=== PATIENT | male | born 1970 | race Caucasian/White ===

== ENCOUNTER 2021-12-25 06:15 | Emergency (ER) | payer MEDICAID ==
[~2021-12-25] VITALS: Ht 180.3 cm; Wt 83.9 kg
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
--- NOTE | 2021-12-25 06:32 | NUR ---
Seen and examined by Dr. Nguyen for MSE.
[2021-12-25] MEDS ORDERED: TDAP DIPH,PERTUSS,TET VAC/PF 0.5 ML DISP.SYRIN IM ONE ×2 (06:45→07:24)
--- NOTE | 2021-12-25 07:05 | NUR ---
Xray done at bedside c/o [facility].
--- NOTE | 2021-12-25 07:13 | NUR ---
Endorsed to THOMAS Dsouza RN.
[2021-12-25 08:19] LABS: HEMATOCRIT 40.4 % (36.7-47.1); MEAN CORPUSCULAR HEMOGLOBIN 30.6 uug (23.8-33.4); MEAN CORPUSCULAR VOLUME 90.4 fL (73.0-96.2); PLATELET COUNT (AUTO) 197 K/uL (152-348)
[2021-12-25 08:23] LABS: CREATININE 1.1 mg/dL (0.6-1.3)
--- NOTE | 2021-12-25 08:57 | NUR ---
PT WAS D/C'd TO HOME. D/C INSTRUCTIONS GIVEN TO THE PT BY DR MCKEE.
[2021-12-25 09:00] VITALS: BP 142/74
== END 2021-12-25 09:03 | disposition home or self-care (01) ==
LOC: ER 06:19
DX: M79.605 Pain in left leg (principal); M79.604 Pain in right leg; S80.812A Abrasion, left lower leg, initial encounter; V03.90XA Pedestrian on foot injured in collision with car, pick-up truck or van, unspecified whether traffic or nontraffic accident, initial encounter; Y92.89 Other specified places as the place of occurrence of the external cause
CPT/HCPCS: 36415; 73551; 73590; 73610; 85025; 90715; A4663